=== PATIENT | male | born 1970 | race Caucasian/White ===

== ENCOUNTER 2016-11-16 19:08 | Emergency (ER) | payer OTHER ==
[~2016-11-16] VITALS: Ht 162.6 cm; Wt 92.5 kg
[~2016-11-16 19:08] MED LIST: ASPI-482 PO; DIAZ5TAB PO; DICL100G7 TP; LISI10TA2 PO; METO25TA9 PO
[2016-11-16 20:47] VITALS: BP 189/103
[2016-11-16] MEDS ORDERED: HYDR-971 PO (21:07)
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
== END 2016-11-16 21:19 | disposition home or self-care (01) ==
LOC: ER 19:08
DX: R51 Headache (principal); R09.81 Nasal congestion; I10 Essential (primary) hypertension; F41.9 Anxiety disorder, unspecified; F32.9 Major depressive disorder, single episode, unspecified; I25.10 Atherosclerotic heart disease of native coronary artery without angina pectoris; I25.2 Old myocardial infarction; Z95.5 Presence of coronary angioplasty implant and graft
CPT/HCPCS: 99284